=== PATIENT | male | born 1950 | race African-American/Black ===

== ENCOUNTER 2016-11-16 11:07 | Emergency (ER) | payer MEDICARE, MEDICAID ==
[2016-11-16] MEDS ORDERED: diphenhydrAMINE HCl 50 MG/ML 1 ML VIAL ONE (11:39)
[2016-11-16] MEDS ORDERED: Metoclopramide HCl 10 MG/2 ML VIAL ONE (11:39)
--- NOTE | 2016-11-16 12:20 | RAD ---
LEFT RIBS WITH PA CHEST: Four views obtained. HISTORY: Rib pain. No evidence of left rib fracture or other left rib lesion. There is left shoulder prosthesis. Prior resection of the distal left clavicle. The lungs appear clear on the upright PA chest. IMPRESSION: No acute finding. POS: [facility]
== END 2016-11-16 12:15 | disposition home or self-care (01) ==
LOC: NAV ERS 11:07
DX: R07.82 Intercostal pain (principal); R51 Headache; I10 Essential (primary) hypertension; E11.9 Type 2 diabetes mellitus without complications; F17.210 Nicotine dependence, cigarettes, uncomplicated; Z86.73 Personal history of transient ischemic attack (TIA), and cerebral infarction without residual deficits; Z79.2 Long term (current) use of antibiotics; Z79.891 Long term (current) use of opiate analgesic; Z79.899 Other long term (current) drug therapy
CPT/HCPCS: 96372; J1200; J2765

== ENCOUNTER 2016-11-27 07:47 | Emergency (ER) | payer MEDICARE, MEDICAID ==
[2016-11-27 08:39] LABS: #Basophils 0.1 thou/uL (0.0-0.2); #Eosinphils 0.2 thou/uL (0.0-0.7); #Monocytes 0.4 thou/uL (0.11-0.59); #Neutrophils 3.1 thou/uL (1.40-6.50); %Basophils 1.9 % (0.0-1.0); %Eosinophils 2.6 % (0.0-10.0); %Lymphocytes 43.9 % (21.0-51.0); %Monocytes 6.4 % (0.0-10.0); %Neutrophils 45.2 % (42.0-75.0); Hemoglobin 12.7 g/dL (14.0-18.0); Mean Corpuscular HGB CONC 31.1 g/dL (32.0-36.0); Mean Corpuscular Hemoglobin 25.3 pg (27.0-31.0); Mean Corpuscular Volume 81.5 fl (80.0-94.0); Platelet Count 276 thou/uL (130-400); RBC Distribution Width 12.9 % (11.5-14.5); Red Blood Cell (RBC) Count 5.01 mill/uL (4.70-6.10); White Blood Cell (WBC) Count 6.8 thou/uL (4.8-10.8)
[2016-11-27 08:54] LABS: ALT (SGPT) 14 U/L (8-55); AST (SGOT) 15 U/L (5-34); Alkaline Phosphatase 90 U/L (40-150); Anion Gap 16 mmol/L (10-20); BUN (Urea Nitrogen) 45 mg/dL (8.4-25.7); Bilirubin, Total 0.3 mg/dL (0.2-1.2); Calc. Creatinine Clearance 0 mL/min (70-130); Calcium 10.3 mg/dL (7.8-10.44); Carbon Dioxide 20 mmol/L (23-31); Chloride 104 mmol/L (98-107); Estimated GFR-MDRD 29; Globulin 3.4 g/dL (2.4-3.5); Glucose 145 mg/dL (80-115); Potassium 3.3 mmol/L (3.5-5.1); Protein, Total 7.4 g/dL (5.8-8.1); Sodium 137 mmol/L (136-145)
[2016-11-27] MEDS ORDERED: Azithromycin 250 MG TAB ONE (09:17)
[2016-11-27] MEDS ORDERED: Ketorolac Tromethamine 30 MG/ML VIAL ONE (09:18)
--- NOTE | 2016-11-27 09:34 | RAD ---
LEFT RIBS 2 VIEWS WITH PA CHEST XRAY: HISTORY: Left-sided chest pain. Cough. COMPARISON: Chest radiograph with ribs 11/16/16. FINDINGS: Lungs appear clear. No pneumothorax or effusion. Cardiac silhouette and mediastinal contours are s imilar. Left reversal total shoulder arthroplasty is similar with cerclage wires. Distal left clavicular osteolysis. No displaced left-sided rib fracture. IMPRESSION: Clear lungs and no displaced left-sided rib fracture. POS: [facility]
== END 2016-11-27 09:28 | disposition home or self-care (01) ==
LOC: NAV ERS 07:47
DX: S29.011A Strain of muscle and tendon of front wall of thorax, initial encounter (principal); J20.9 Acute bronchitis, unspecified; E11.9 Type 2 diabetes mellitus without complications; I10 Essential (primary) hypertension; F17.210 Nicotine dependence, cigarettes, uncomplicated; Z79.899 Other long term (current) drug therapy; X58.XXXA Exposure to other specified factors, initial encounter
CPT/HCPCS: 36415; 80053; 85025; 96372; J1885

== ENCOUNTER 2019-07-26 11:45 | Emergency (ER) | payer MEDICARE, OTHER ==
[2019-07-26] MEDS ORDERED: Ondansetron PF 4 MG/2 ML Vial ONE (12:46)
[2019-07-26] MEDS ORDERED: Sodium Chloride 0.9% 1,000 ML ONE (12:46)
[2019-07-26] MEDS ORDERED: Ketorolac Tromethamine 30 MG/ML VIAL ONE (12:46)
[2019-07-26 12:47] LABS: #Basophils 0.1 thou/uL (0.0-0.2); #Lymphocytes 0.4 thou/uL (1.20-3.40); #Monocytes 0.5 thou/uL (0.11-0.59); #Neutrophils 4.8 thou/uL (1.40-6.50); %Eosinophils 0.5 % (0.0-10.0); %Monocytes 9.1 % (0.0-10.0); %Neutrophils 83.5 % (42.0-75.0); Hemoglobin 13.7 g/dL (14.0-18.0); Mean Corpuscular HGB CONC 30.8 g/dL (32.0-36.0); Mean Corpuscular Hemoglobin 25.9 pg (27.0-31.0); Platelet Count 250 thou/uL (130-400); RBC Distribution Width 14.8 % (11.5-14.5); White Blood Cell (WBC) Count 5.7 thou/uL (4.8-10.8)
[2019-07-26 13:22] LABS: ALT (SGPT) 28 U/L (8-55); AST (SGOT) 21 U/L (5-34); Albumin 4.2 g/dL (3.4-4.8); Alkaline Phosphatase 85 U/L (40-110); Anion Gap 15 mmol/L (10-20); BUN (Urea Nitrogen) 36 mg/dL (8.4-25.7); Bilirubin, Total 0.4 mg/dL (0.2-1.2); Calc. Creatinine Clearance 0 mL/min (70-130); Calcium 9.6 mg/dL (7.8-10.44); Carbon Dioxide 22 mmol/L (23-31); Chloride 106 mmol/L (98-107); Estimated GFR-MDRD 51; Globulin 3.2 g/dL (2.4-3.5); Glucose 97 mg/dL (80-115); Lipase 14 U/L (8-78); Protein, Total 7.4 g/dL (5.8-8.1); Sodium 139 mmol/L (136-145)
== END 2019-07-26 13:47 | disposition home or self-care (01) ==
LOC: NAV ERS 11:45
DX: E86.9 Volume depletion, unspecified (principal); I12.9 Hypertensive chronic kidney disease with stage 1 through stage 4 chronic kidney disease, or unspecified chronic kidney disease; N18.9 Chronic kidney disease, unspecified; E11.9 Type 2 diabetes mellitus without complications; F17.210 Nicotine dependence, cigarettes, uncomplicated; Z86.73 Personal history of transient ischemic attack (TIA), and cerebral infarction without residual deficits; Z79.82 Long term (current) use of aspirin; Z79.899 Other long term (current) drug therapy
CPT/HCPCS: 80053; 83690; 85025; 87804; 96361; 96374; 96375; J1885; J2405; J7050

== ENCOUNTER 2022-03-15 19:03 | Emergency (ER) | payer OTHER ==
[2022-03-15] MEDS ORDERED: Ibuprofen 200 MG TAB ONE (19:42)
== END 2022-03-15 19:50 | disposition home or self-care (01) ==
LOC: NAV ERS 19:03
DX: I10 Essential (primary) hypertension (principal); E11.9 Type 2 diabetes mellitus without complications; F17.210 Nicotine dependence, cigarettes, uncomplicated; Z79.899 Other long term (current) drug therapy
CPT/HCPCS: 99283

== ENCOUNTER 2022-10-27 14:46 | Outpatient (CLI) | payer OTHER | END 2022-10-27 14:47 | disposition home or self-care (01) | LOC: NAV RAD 14:46 | PROVIDERS: ATTEND Family Medicine | DX: M25.512 Pain in left shoulder (principal) ==

== ENCOUNTER 2022-11-18 09:25 | Inpatient (IN) | payer OTHER ==
[2022-11-18] MEDS ORDERED: Glucagon 1 MG/ML KIT IM PRN (09:49)
[2022-11-18] MEDS ORDERED: Dextrose 50% Abboject 50 ML SYRINGE SLOW IVP PRN (09:49)
[2022-11-18] MEDS ORDERED: Sodium Chloride 0.65% Nasal 44 ML BOT EA NARE PRN (09:50)
[2022-11-18] MEDS ORDERED: Calcium Carbonate 500 MG ChewTAB PO PRN (09:50)
[2022-11-18] MEDS ORDERED: HumaLOG 300 UNITS/3 ML VIAL SC PRN (09:50)
[2022-11-18] MEDS ORDERED: Artificial Tear Sol 15 ML BOT EA EYE PRN (09:50)
[2022-11-18] MEDS ORDERED: Senokot S 8.6-50 MG TAB PO PRN (09:50)
[2022-11-18] MEDS ORDERED: Bisacodyl 10 MG SUPP PR PRN (09:50)
[2022-11-18] MEDS ORDERED: Acetaminophen 650 MG Suppository PR PRN (09:50)
[2022-11-18] MEDS ORDERED: Bisacodyl 5 MG TAB PO PRN (09:50)
[2022-11-18] MEDS ORDERED: Benzocaine/Menthol 1 LOZ LOZ PO PRN (09:50)
[2022-11-18] MEDS ORDERED: Ventolin HFA Inhaler 60 PUFF INHALER INH PRN (14:44)
[2022-11-18] MEDS ORDERED: Mometasone 100 MCG/Formoterol 5 MCG 120 PUFF INHALER INH SCH ×2 (15:15→21:00)
[2022-11-18] MEDS ORDERED: Mometasone/Formoterol 60 PUFF AER INH SCH (15:45)
[2022-11-18] MEDS: HYDROcodone/Acetaminophen 5/325 mg Tablet PO PRN ×2 (15:52→20:29)
[2022-11-18] MEDS: Nicotine 21 MG PATCH TD SCH (15:53)
[2022-11-18] MEDS: Carvedilol 3.125 MG TAB PO SCH (16:02)
[2022-11-18] MEDS: Baclofen 10 MG TAB PO SCH (20:27)
[2022-11-18] MEDS: Rosuvastatin 10 MG TAB PO SCH (20:27)
[2022-11-18] MEDS: Mometasone/Formoterol 60 PUFF AER INH SCH (20:28)
[2022-11-18] MEDS: Guaifenesin DM 100-10/5 ML UDCUP PO PRN (20:29)
[2022-11-19 06:07] LABS: #Basophils 0.1 thou/uL (0.0-0.2); #Eosinphils 0.1 thou/uL (0.0-0.7); #Lymphocytes 1.7 thou/uL (1.20-3.40); #Monocytes 0.4 thou/uL (0.11-0.59); #Neutrophils 2.5 thou/uL (1.40-6.50); %Basophils 1.3 % (0.0-1.0); %Lymphocytes 35.3 % (21.0-51.0); %Monocytes 7.5 % (0.0-10.0); %Neutrophils 53.9 % (42.0-75.0); Hemoglobin 9.7 g/dL (14.0-18.0); Mean Corpuscular HGB CONC 30.8 g/dL (32.0-36.0); Mean Corpuscular Hemoglobin 26.7 pg (27.0-31.0); Mean Corpuscular Volume 86.8 fl (78.0-98.0); Platelet Count 263 10x3/uL (130-400); RBC Distribution Width 13.1 % (11.5-14.5); Red Blood Cell (RBC) Count 3.62 mill/uL (4.70-6.10); White Blood Cell (WBC) Count 7.7 10x3/uL (4.8-10.8)
[2022-11-19 06:10] LABS: ALT (SGPT) 85 U/L (8-55); AST (SGOT) 31 U/L (5-34); Alkaline Phosphatase 130 U/L (40-110); Anion Gap 14 mmol/L (10-20); BUN (Urea Nitrogen) 24 mg/dL (8.4-25.7); Bilirubin, Total 0.4 mg/dL (0.2-1.2); Calc. Creatinine Clearance 53 mL/min (70-130); Carbon Dioxide 24 mmol/L (23-31); Chloride 106 mmol/L (98-107); Estimated GFR 65; Glucose 104 mg/dL (83-110); Potassium 4.5 mmol/L (3.5-5.1); Sodium 139 mmol/L (136-145)
[2022-11-19] MEDS: HYDROcodone/Acetaminophen 5/325 mg Tablet PO PRN ×2 (08:04→21:14)
[2022-11-19] MEDS: Mometasone/Formoterol 60 PUFF AER INH SCH ×2 (08:07→21:14)
[2022-11-19] MEDS: Tamsulosin HCl 0.4 MG CAP PO SCH (08:08)
[2022-11-19] MEDS: Aspirin 81 mg Enteric Coated Tablet PO SCH (08:08)
[2022-11-19] MEDS: Baclofen 10 MG TAB PO SCH ×2 (08:08→21:14)
[2022-11-19] MEDS: Carvedilol 3.125 MG TAB PO SCH ×2 (08:09→17:20)
[2022-11-19] MEDS: Benzonatate 100 MG CAP PO PRN (08:09)
[2022-11-19] MEDS ORDERED: PATIENT'S HOME MEDICATION PO SCH (09:00)
[2022-11-19] MEDS: Nicotine 21 MG PATCH TD SCH (13:45)
[2022-11-19] MEDS: Acetaminophen 325 MG TAB PO PRN (13:50)
[2022-11-19] MEDS: Rosuvastatin 10 MG TAB PO SCH (21:14)
[2022-11-20] MEDS: HYDROcodone/Acetaminophen 5/325 mg Tablet PO PRN (07:58)
[2022-11-20] MEDS: Mometasone/Formoterol 60 PUFF AER INH SCH ×2 (08:00→21:45)
[2022-11-20] MEDS: Aspirin 81 mg Enteric Coated Tablet PO SCH (08:00)
[2022-11-20] MEDS: Tamsulosin HCl 0.4 MG CAP PO SCH (08:00)
[2022-11-20] MEDS: Carvedilol 3.125 MG TAB PO SCH ×2 (08:00→17:26)
[2022-11-20] MEDS: Baclofen 10 MG TAB PO SCH ×2 (08:00→21:45)
[2022-11-20] MEDS: Nicotine 21 MG PATCH TD SCH (14:27)
[2022-11-20] MEDS ORDERED: Albuterol 200 PUFF (6.7GM INHALER) INH PRN (16:30)
[2022-11-20] MEDS: Rosuvastatin 10 MG TAB PO SCH (21:45)
[2022-11-21] MEDS: Baclofen 10 MG TAB PO SCH ×2 (08:14→20:48)
[2022-11-21] MEDS: ALCAFTADINE L EYE SCH (08:15)
[2022-11-21] MEDS: Mometasone/Formoterol 60 PUFF AER INH SCH ×2 (08:15→20:51)
[2022-11-21] MEDS: Tamsulosin HCl 0.4 MG CAP PO SCH (08:15)
[2022-11-21] MEDS: Carvedilol 3.125 MG TAB PO SCH ×2 (08:15→16:29)
[2022-11-21] MEDS: Aspirin 81 mg Enteric Coated Tablet PO SCH (08:15)
[2022-11-21] MEDS: HYDROcodone/Acetaminophen 5/325 mg Tablet PO PRN ×2 (08:20→20:57)
[2022-11-21] MEDS ORDERED: [UNRECOGNIZED DRUG - OTHER] L EYE SCH (09:00)
[2022-11-21] MEDS: Nicotine 21 MG PATCH TD SCH (14:33)
[2022-11-21] MEDS: Rosuvastatin 10 MG TAB PO SCH (20:47)
[2022-11-22] MEDS: Tamsulosin HCl 0.4 MG CAP PO SCH (08:08)
[2022-11-22] MEDS: Carvedilol 3.125 MG TAB PO SCH ×2 (08:08→16:40)
[2022-11-22] MEDS: Baclofen 10 MG TAB PO SCH ×2 (08:08→20:03)
[2022-11-22] MEDS: ALCAFTADINE L EYE SCH (08:08)
[2022-11-22] MEDS: Aspirin 81 mg Enteric Coated Tablet PO SCH (08:08)
[2022-11-22] MEDS: Mometasone/Formoterol 60 PUFF AER INH SCH ×2 (08:08→20:00)
[2022-11-22] MEDS: Nicotine 21 MG PATCH TD SCH (08:48)
[2022-11-22] MEDS: Rosuvastatin 10 MG TAB PO SCH (20:03)
[2022-11-22] MEDS: Guaifenesin DM 100-10/5 ML UDCUP PO PRN (20:05)
[2022-11-23 06:10] LABS: #Basophils 0.1 thou/uL (0.0-0.2); #Eosinphils 0.2 thou/uL (0.0-0.7); #Lymphocytes 1.7 thou/uL (1.20-3.40); #Monocytes 0.4 thou/uL (0.11-0.59); %Basophils 1.1 % (0.0-1.0); %Eosinophils 1.9 % (0.0-10.0); %Lymphocytes 20.4 % (21.0-51.0); %Monocytes 5.2 % (0.0-10.0); %Neutrophils 71.5 % (42.0-75.0); Hemoglobin 9.5 g/dL (14.0-18.0); Mean Corpuscular HGB CONC 30.9 g/dL (32.0-36.0); Mean Corpuscular Hemoglobin 26.9 pg (27.0-31.0); Mean Corpuscular Volume 87.1 fl (78.0-98.0); Mean Platelet Volume 5.5 fL (7.4-10.4); Platelet Count 314 10x3/uL (130-400); RBC Distribution Width 13.7 % (11.5-14.5); Red Blood Cell (RBC) Count 3.54 mill/uL (4.70-6.10); White Blood Cell (WBC) Count 8.4 10x3/uL (4.8-10.8)
[2022-11-23 06:23] LABS: Anion Gap 10 mmol/L (10-20); BUN (Urea Nitrogen) 26 mg/dL (8.4-25.7); Calc. Creatinine Clearance 60 mL/min (70-130); Calcium 9.2 mg/dL (7.8-10.44); Carbon Dioxide 24 mmol/L (23-31); Chloride 109 mmol/L (98-107); Estimated GFR 75; Glucose 104 mg/dL (83-110); Potassium 4.1 mmol/L (3.5-5.1); Sodium 139 mmol/L (136-145)
[2022-11-23] MEDS: HYDROcodone/Acetaminophen 5/325 mg Tablet PO PRN ×2 (08:05→14:44)
[2022-11-23] MEDS: Mometasone/Formoterol 60 PUFF AER INH SCH ×2 (08:05→21:09)
[2022-11-23] MEDS: Tamsulosin HCl 0.4 MG CAP PO SCH (08:05)
[2022-11-23] MEDS: Benzonatate 100 MG CAP PO PRN (08:06)
[2022-11-23] MEDS: Baclofen 10 MG TAB PO SCH ×2 (08:06→21:08)
[2022-11-23] MEDS: Nicotine 21 MG PATCH TD SCH (08:07)
[2022-11-23] MEDS: ALCAFTADINE L EYE SCH (08:07)
[2022-11-23] MEDS: Aspirin 81 mg Enteric Coated Tablet PO SCH (08:07)
[2022-11-23] MEDS: Carvedilol 3.125 MG TAB PO SCH ×2 (08:07→17:48)
[2022-11-23] MEDS: Acetaminophen 325 MG TAB PO PRN (21:05)
[2022-11-23] MEDS: Rosuvastatin 10 MG TAB PO SCH (21:07)
[2022-11-24] MEDS: Baclofen 10 MG TAB PO SCH ×2 (07:46→21:03)
[2022-11-24] MEDS: Carvedilol 3.125 MG TAB PO SCH ×2 (07:46→17:35)
[2022-11-24] MEDS: Mometasone/Formoterol 60 PUFF AER INH SCH ×2 (07:47→21:02)
[2022-11-24] MEDS: Nicotine 21 MG PATCH TD SCH (07:47)
[2022-11-24] MEDS: Aspirin 81 mg Enteric Coated Tablet PO SCH (07:47)
[2022-11-24] MEDS: Tamsulosin HCl 0.4 MG CAP PO SCH (07:47)
[2022-11-24] MEDS: HYDROcodone/Acetaminophen 5/325 mg Tablet PO PRN (08:00)
[2022-11-24] MEDS: ALCAFTADINE L EYE SCH (08:40)
[2022-11-24] MEDS: Rosuvastatin 10 MG TAB PO SCH (21:04)
[2022-11-24] MEDS: Acetaminophen 325 MG TAB PO PRN (21:04)
[2022-11-24] MEDS: Benzonatate 100 MG CAP PO PRN (21:04)
[2022-11-25] MEDS: Baclofen 10 MG TAB PO SCH ×2 (08:31→21:08)
[2022-11-25] MEDS: Tamsulosin HCl 0.4 MG CAP PO SCH (08:31)
[2022-11-25] MEDS: Nicotine 21 MG PATCH TD SCH (08:31)
[2022-11-25] MEDS: Aspirin 81 mg Enteric Coated Tablet PO SCH (08:31)
[2022-11-25] MEDS: Carvedilol 3.125 MG TAB PO SCH ×2 (08:31→17:41)
[2022-11-25] MEDS: HYDROcodone/Acetaminophen 5/325 mg Tablet PO PRN ×2 (08:35→17:41)
[2022-11-25] MEDS: Mometasone/Formoterol 60 PUFF AER INH SCH ×2 (08:36→21:07)
[2022-11-25] MEDS: ALCAFTADINE L EYE SCH (09:00)
[2022-11-25] MEDS: Rosuvastatin 10 MG TAB PO SCH (21:07)
[2022-11-25] MEDS: Acetaminophen 325 MG TAB PO PRN (21:07)
[2022-11-26 06:04] LABS: #Basophils 0.1 thou/uL (0.0-0.2); #Eosinphils 0.1 thou/uL (0.0-0.7); #Lymphocytes 1.4 thou/uL (1.20-3.40); #Monocytes 0.4 thou/uL (0.11-0.59); #Neutrophils 3.1 thou/uL (1.40-6.50); %Basophils 1.6 % (0.0-1.0); %Eosinophils 2.1 % (0.0-10.0); %Lymphocytes 26.5 % (21.0-51.0); %Monocytes 8.4 % (0.0-10.0); %Neutrophils 61.5 % (42.0-75.0); Hemoglobin 9.6 g/dL (14.0-18.0); Mean Corpuscular HGB CONC 30.6 g/dL (32.0-36.0); Mean Corpuscular Hemoglobin 26.9 pg (27.0-31.0); Mean Corpuscular Volume 87.7 fl (78.0-98.0); Mean Platelet Volume 5.9 fL (7.4-10.4); Platelet Count 313 10x3/uL (130-400); Red Blood Cell (RBC) Count 3.57 mill/uL (4.70-6.10); White Blood Cell (WBC) Count 5.1 10x3/uL (4.8-10.8)
[2022-11-26 06:28] LABS: Anion Gap 14 mmol/L (10-20); BUN (Urea Nitrogen) 25 mg/dL (8.4-25.7); Calc. Creatinine Clearance 56 mL/min (70-130); Calcium 9.3 mg/dL (7.8-10.44); Carbon Dioxide 22 mmol/L (23-31); Chloride 109 mmol/L (98-107); Estimated GFR 68; Glucose 96 mg/dL (83-110); Potassium 4.4 mmol/L (3.5-5.1); Sodium 141 mmol/L (136-145)
[2022-11-26] MEDS: HYDROcodone/Acetaminophen 5/325 mg Tablet PO PRN ×2 (07:23→23:23)
[2022-11-26] MEDS: Tamsulosin HCl 0.4 MG CAP PO SCH (07:24)
[2022-11-26] MEDS: Baclofen 10 MG TAB PO SCH ×2 (07:24→20:29)
[2022-11-26] MEDS: Carvedilol 3.125 MG TAB PO SCH ×2 (07:25→16:33)
[2022-11-26] MEDS: Aspirin 81 mg Enteric Coated Tablet PO SCH (07:25)
[2022-11-26] MEDS: ALCAFTADINE L EYE SCH (07:25)
[2022-11-26] MEDS: Mometasone/Formoterol 60 PUFF AER INH SCH ×2 (07:28→20:29)
[2022-11-26] MEDS: Nicotine 21 MG PATCH TD SCH (07:28)
[2022-11-26] MEDS ORDERED: Sodium Chloride 0.9% 500 ML IV SCH (16:00)
[2022-11-26 16:10] LABS: CKMB 2.5 ng/mL (0-6.6)
[2022-11-26 16:58] LABS: Bilirubin Negative (Negative); Blood, Urine Negative (Negative); Clarity Clear (Clear); Glucose, Urine (Dipstick) Negative (Negative); Ketone, Urine Negative (Negative); Leukocyte Negative (Negative); Nitrite Negative (Negative); Protein, Urine (Dipstick) Negative (Neg-Trace)
[2022-11-26 17:02] LABS: CAUTI Indications for Culture Alt mental st,lethar
[2022-11-26 17:03] LABS: Bacteria/HPF None Seen HPF (None Seen); RBC/HPF None Seen HPF (0-3); Squamous Epithelial None Seen HPF (0-3); WBC/HPF None Seen HPF (0-3)
[2022-11-26 17:05] LABS: Urine Culture Reflex No No
[2022-11-26 20:28] VITALS: BMI 20.2
[2022-11-26] MEDS: Rosuvastatin 10 MG TAB PO SCH (20:29)
[2022-11-26 21:27] LABS: Troponin I 0.208 ng/mL (< 0.028)
[2022-11-27] MEDS: Tamsulosin HCl 0.4 MG CAP PO SCH (08:01)
[2022-11-27] MEDS: Baclofen 10 MG TAB PO SCH ×2 (08:01→20:03)
[2022-11-27] MEDS: Nicotine 21 MG PATCH TD SCH (08:02)
[2022-11-27] MEDS: Mometasone/Formoterol 60 PUFF AER INH SCH ×2 (08:02→20:39)
[2022-11-27] MEDS: Carvedilol 3.125 MG TAB PO SCH ×2 (08:02→17:10)
[2022-11-27] MEDS: Aspirin 81 mg Enteric Coated Tablet PO SCH (08:02)
[2022-11-27] MEDS: ALCAFTADINE L EYE SCH (08:03)
[2022-11-27] MEDS: HYDROcodone/Acetaminophen 5/325 mg Tablet PO PRN ×2 (08:10→20:03)
[2022-11-27] MEDS: Rosuvastatin 10 MG TAB PO SCH (20:03)
[2022-11-28] MEDS: Tamsulosin HCl 0.4 MG CAP PO SCH (08:39)
[2022-11-28] MEDS: Baclofen 10 MG TAB PO SCH ×2 (08:39→19:59)
[2022-11-28] MEDS: Aspirin 81 mg Enteric Coated Tablet PO SCH (08:39)
[2022-11-28] MEDS: Carvedilol 3.125 MG TAB PO SCH ×2 (08:39→17:06)
[2022-11-28] MEDS: Mometasone/Formoterol 60 PUFF AER INH SCH ×2 (08:40→20:00)
[2022-11-28] MEDS: ALCAFTADINE L EYE SCH (08:40)
[2022-11-28] MEDS: Nicotine 21 MG PATCH TD SCH (08:41)
[2022-11-28] MEDS: HYDROcodone/Acetaminophen 5/325 mg Tablet PO PRN ×2 (08:43→19:59)
[2022-11-28] MEDS: Rosuvastatin 10 MG TAB PO SCH (19:59)
[2022-11-29] MEDS: HYDROcodone/Acetaminophen 5/325 mg Tablet PO PRN ×3 (07:59→21:19)
[2022-11-29] MEDS: Nicotine 21 MG PATCH TD SCH (08:00)
[2022-11-29] MEDS: Guaifenesin DM 100-10/5 ML UDCUP PO PRN (08:01)
[2022-11-29] MEDS: Aspirin 81 mg Enteric Coated Tablet PO SCH (08:03)
[2022-11-29] MEDS: Carvedilol 3.125 MG TAB PO SCH ×2 (08:03→16:52)
[2022-11-29] MEDS: Mometasone/Formoterol 60 PUFF AER INH SCH ×2 (08:03→21:18)
[2022-11-29] MEDS: Baclofen 10 MG TAB PO SCH ×2 (08:03→21:19)
[2022-11-29] MEDS: Tamsulosin HCl 0.4 MG CAP PO SCH (08:03)
[2022-11-29] MEDS: ALCAFTADINE L EYE SCH (08:04)
[2022-11-29] MEDS: Rosuvastatin 10 MG TAB PO SCH (21:18)
[2022-11-30 06:01] LABS: #Basophils 0.1 thou/uL (0.0-0.2); #Eosinphils 0.1 thou/uL (0.0-0.7); #Lymphocytes 1.3 thou/uL (1.20-3.40); #Monocytes 0.4 thou/uL (0.11-0.59); #Neutrophils 2.7 thou/uL (1.40-6.50); %Basophils 1.2 % (0.0-1.0); %Eosinophils 2.5 % (0.0-10.0); %Lymphocytes 27.8 % (21.0-51.0); %Monocytes 9.6 % (0.0-10.0); %Neutrophils 58.9 % (42.0-75.0); Hemoglobin 10.9 g/dL (14.0-18.0); Mean Corpuscular HGB CONC 31.1 g/dL (32.0-36.0); Platelet Count 249 10x3/uL (130-400); RBC Distribution Width 13.7 % (11.5-14.5); Red Blood Cell (RBC) Count 4.03 mill/uL (4.70-6.10); White Blood Cell (WBC) Count 4.5 10x3/uL (4.8-10.8)
[2022-11-30 06:13] LABS: Anion Gap 12 mmol/L (10-20); BUN (Urea Nitrogen) 27 mg/dL (8.4-25.7); Calc. Creatinine Clearance 55 mL/min (70-130); Calcium 9.5 mg/dL (7.8-10.44); Carbon Dioxide 26 mmol/L (23-31); Chloride 105 mmol/L (98-107); Estimated GFR 68; Glucose 91 mg/dL (83-110); Potassium 4.2 mmol/L (3.5-5.1); Sodium 139 mmol/L (136-145)
[2022-11-30] MEDS: Nicotine 21 MG PATCH TD SCH (08:02)
[2022-11-30] MEDS: Tamsulosin HCl 0.4 MG CAP PO SCH (08:02)
[2022-11-30] MEDS: Baclofen 10 MG TAB PO SCH ×2 (08:02→23:02)
[2022-11-30] MEDS: Carvedilol 3.125 MG TAB PO SCH ×2 (08:02→17:00)
[2022-11-30] MEDS: Aspirin 81 mg Enteric Coated Tablet PO SCH (08:02)
[2022-11-30] MEDS: ALCAFTADINE L EYE SCH (08:02)
[2022-11-30] MEDS: Mometasone/Formoterol 60 PUFF AER INH SCH ×2 (08:02→23:03)
[2022-11-30] MEDS: HYDROcodone/Acetaminophen 5/325 mg Tablet PO PRN ×2 (08:08→23:00)
[2022-11-30] MEDS: Rosuvastatin 10 MG TAB PO SCH (23:02)
[2022-12-01] MEDS: Carvedilol 3.125 MG TAB PO SCH ×2 (08:59→16:30)
[2022-12-01] MEDS: Baclofen 10 MG TAB PO SCH ×2 (08:59→21:09)
[2022-12-01] MEDS: Tamsulosin HCl 0.4 MG CAP PO SCH (08:59)
[2022-12-01] MEDS: Aspirin 81 mg Enteric Coated Tablet PO SCH (09:00)
[2022-12-01] MEDS: ALCAFTADINE L EYE SCH (09:00)
[2022-12-01] MEDS: Mometasone/Formoterol 60 PUFF AER INH SCH ×2 (09:00→21:10)
[2022-12-01] MEDS: Nicotine 21 MG PATCH TD SCH (09:00)
[2022-12-01] MEDS: HYDROcodone/Acetaminophen 5/325 mg Tablet PO PRN (09:07)
[2022-12-01] MEDS: Rosuvastatin 10 MG TAB PO SCH (21:09)
[2022-12-02] MEDS: Tamsulosin HCl 0.4 MG CAP PO SCH (08:29)
[2022-12-02] MEDS: Mometasone/Formoterol 60 PUFF AER INH SCH ×2 (08:29→20:58)
[2022-12-02] MEDS: HYDROcodone/Acetaminophen 5/325 mg Tablet PO PRN ×2 (08:29→20:55)
[2022-12-02] MEDS: Nicotine 21 MG PATCH TD SCH (08:29)
[2022-12-02] MEDS: Baclofen 10 MG TAB PO SCH ×2 (08:30→20:58)
[2022-12-02] MEDS: Carvedilol 3.125 MG TAB PO SCH ×2 (08:31→18:13)
[2022-12-02] MEDS: Aspirin 81 mg Enteric Coated Tablet PO SCH (08:31)
[2022-12-02] MEDS: ALCAFTADINE L EYE SCH (08:31)
[2022-12-02] MEDS: Rosuvastatin 10 MG TAB PO SCH (20:55)
[2022-12-03 06:07] LABS: #Basophils 0.1 thou/uL (0.0-0.2); #Eosinphils 0.2 thou/uL (0.0-0.7); #Lymphocytes 1.4 thou/uL (1.20-3.40); #Monocytes 0.9 thou/uL (0.11-0.59); #Neutrophils 5.8 thou/uL (1.40-6.50); %Basophils 1.4 % (0.0-1.0); %Monocytes 10.3 % (0.0-10.0); %Neutrophils 69.4 % (42.0-75.0); Hemoglobin 11.3 g/dL (14.0-18.0); Mean Corpuscular HGB CONC 30.2 g/dL (32.0-36.0); Mean Corpuscular Hemoglobin 26.7 pg (27.0-31.0); Mean Corpuscular Volume 88.4 fl (78.0-98.0); Platelet Count 253 10x3/uL (130-400); RBC Distribution Width 13.6 % (11.5-14.5); Red Blood Cell (RBC) Count 4.24 mill/uL (4.70-6.10); White Blood Cell (WBC) Count 8.3 10x3/uL (4.8-10.8)
[2022-12-03 06:22] LABS: Anion Gap 14 mmol/L (10-20); BUN (Urea Nitrogen) 26 mg/dL (8.4-25.7); Calc. Creatinine Clearance 48 mL/min (70-130); Calcium 9.8 mg/dL (7.8-10.44); Carbon Dioxide 24 mmol/L (23-31); Chloride 107 mmol/L (98-107); Estimated GFR 57; Glucose 95 mg/dL (83-110); Potassium 4.1 mmol/L (3.5-5.1); Sodium 141 mmol/L (136-145)
[2022-12-03] MEDS: Baclofen 10 MG TAB PO SCH ×2 (08:29→21:47)
[2022-12-03] MEDS: Aspirin 81 mg Enteric Coated Tablet PO SCH (08:30)
[2022-12-03] MEDS: Tamsulosin HCl 0.4 MG CAP PO SCH (08:30)
[2022-12-03] MEDS: Carvedilol 3.125 MG TAB PO SCH ×2 (08:30→17:29)
[2022-12-03] MEDS: Mometasone/Formoterol 60 PUFF AER INH SCH ×2 (08:32→21:46)
[2022-12-03] MEDS: ALCAFTADINE L EYE SCH (08:32)
[2022-12-03] MEDS: Nicotine 21 MG PATCH TD SCH (08:37)
[2022-12-03] MEDS: HYDROcodone/Acetaminophen 5/325 mg Tablet PO PRN (08:38)
[2022-12-03] MEDS: Rosuvastatin 10 MG TAB PO SCH (21:47)
[2022-12-03] MEDS: Acetaminophen 325 MG TAB PO PRN (21:48)
[2022-12-04] MEDS: Baclofen 10 MG TAB PO SCH ×2 (09:10→20:55)
[2022-12-04] MEDS: Tamsulosin HCl 0.4 MG CAP PO SCH (09:10)
[2022-12-04] MEDS: Carvedilol 3.125 MG TAB PO SCH ×2 (09:11→17:18)
[2022-12-04] MEDS: HYDROcodone/Acetaminophen 5/325 mg Tablet PO PRN ×3 (09:11→20:55)
[2022-12-04] MEDS: Nicotine 21 MG PATCH TD SCH (09:12)
[2022-12-04] MEDS: Aspirin 81 mg Enteric Coated Tablet PO SCH (09:12)
[2022-12-04] MEDS: Mometasone/Formoterol 60 PUFF AER INH SCH ×2 (09:13→20:54)
[2022-12-04] MEDS: ALCAFTADINE L EYE SCH (09:13)
[2022-12-04] MEDS: Rosuvastatin 10 MG TAB PO SCH (20:54)
[2022-12-05] MEDS: Tamsulosin HCl 0.4 MG CAP PO SCH (08:03)
[2022-12-05] MEDS: Mometasone/Formoterol 60 PUFF AER INH SCH ×2 (08:03→21:06)
[2022-12-05] MEDS: Aspirin 81 mg Enteric Coated Tablet PO SCH (08:03)
[2022-12-05] MEDS: ALCAFTADINE L EYE SCH (08:03)
[2022-12-05] MEDS: Baclofen 10 MG TAB PO SCH ×2 (08:03→21:08)
[2022-12-05] MEDS: Nicotine 21 MG PATCH TD SCH (08:03)
[2022-12-05] MEDS: Carvedilol 3.125 MG TAB PO SCH ×2 (08:03→16:37)
[2022-12-05] MEDS: Acetaminophen 325 MG TAB PO PRN (08:15)
[2022-12-05] MEDS: HYDROcodone/Acetaminophen 5/325 mg Tablet PO PRN (21:06)
[2022-12-05] MEDS: Rosuvastatin 10 MG TAB PO SCH (21:08)
[2022-12-06] MEDS: Nicotine 21 MG PATCH TD SCH (08:39)
[2022-12-06] MEDS: ALCAFTADINE L EYE SCH (08:39)
[2022-12-06] MEDS: Aspirin 81 mg Enteric Coated Tablet PO SCH (08:39)
[2022-12-06] MEDS: Mometasone/Formoterol 60 PUFF AER INH SCH ×2 (08:39→21:15)
[2022-12-06] MEDS: Baclofen 10 MG TAB PO SCH ×2 (08:39→21:17)
[2022-12-06] MEDS: Tamsulosin HCl 0.4 MG CAP PO SCH (08:39)
[2022-12-06] MEDS: Carvedilol 3.125 MG TAB PO SCH ×2 (08:39→16:31)
[2022-12-06] MEDS: Acetaminophen 325 MG TAB PO PRN (08:46)
[2022-12-06] MEDS: HYDROcodone/Acetaminophen 5/325 mg Tablet PO PRN (21:16)
[2022-12-06] MEDS: Rosuvastatin 10 MG TAB PO SCH (21:17)
[2022-12-07 05:52] LABS: #Basophils 0.1 thou/uL (0.0-0.2); #Eosinphils 0.2 thou/uL (0.0-0.7); #Lymphocytes 1.5 thou/uL (1.20-3.40); #Monocytes 0.7 thou/uL (0.11-0.59); #Neutrophils 2.7 thou/uL (1.40-6.50); %Basophils 1.6 % (0.0-1.0); %Eosinophils 3.6 % (0.0-10.0); %Lymphocytes 28.8 % (21.0-51.0); %Monocytes 14.1 % (0.0-10.0); %Neutrophils 51.8 % (42.0-75.0); Mean Corpuscular HGB CONC 31.5 g/dL (32.0-36.0); Mean Corpuscular Hemoglobin 26.8 pg (27.0-31.0); Mean Platelet Volume 6.8 fL (7.4-10.4); Platelet Count 280 10x3/uL (130-400); Red Blood Cell (RBC) Count 4.11 mill/uL (4.70-6.10); White Blood Cell (WBC) Count 5.2 10x3/uL (4.8-10.8)
[2022-12-07 06:09] LABS: Anion Gap 12 mmol/L (10-20); BUN (Urea Nitrogen) 25 mg/dL (8.4-25.7); Calc. Creatinine Clearance 54 mL/min (70-130); Calcium 9.5 mg/dL (7.8-10.44); Carbon Dioxide 25 mmol/L (23-31); Chloride 108 mmol/L (98-107); Estimated GFR 65; Glucose 116 mg/dL (83-110); Potassium 4.1 mmol/L (3.5-5.1); Sodium 141 mmol/L (136-145)
[2022-12-07] MEDS: Tamsulosin HCl 0.4 MG CAP PO SCH (09:22)
[2022-12-07] MEDS: Carvedilol 3.125 MG TAB PO SCH ×2 (09:22→17:17)
[2022-12-07] MEDS: Aspirin 81 mg Enteric Coated Tablet PO SCH (09:22)
[2022-12-07] MEDS: Baclofen 10 MG TAB PO SCH ×2 (09:22→21:42)
[2022-12-07] MEDS: Nicotine 21 MG PATCH TD SCH (09:23)
[2022-12-07] MEDS: Mometasone/Formoterol 60 PUFF AER INH SCH ×2 (09:23→21:42)
[2022-12-07] MEDS: ALCAFTADINE L EYE SCH (09:23)
[2022-12-07] MEDS: HYDROcodone/Acetaminophen 5/325 mg Tablet PO PRN ×2 (09:27→21:48)
[2022-12-07] MEDS: Guaifenesin DM 100-10/5 ML UDCUP PO PRN (09:28)
[2022-12-07 17:00] LABS: Bilirubin Negative (Negative); Blood, Urine Negative (Negative); Glucose, Urine (Dipstick) Negative (Negative); Ketone, Urine Negative (Negative); Leukocyte Large (Negative); Nitrite Positive (Negative); Protein, Urine (Dipstick) > or equal to 300 mg/dL (Neg-Trace); Urobilinogen 0.2 mg/dL (Less than 2)
[2022-12-07 17:17] LABS: Clarity Turbid (Clear)
[2022-12-07 17:20] LABS: Bacteria/HPF 4+ HPF (None Seen); RBC/HPF 0-3 HPF (0-3); Squamous Epithelial 0-3 HPF (0-3)
[2022-12-07] MEDS: Rosuvastatin 10 MG TAB PO SCH (21:42)
[2022-12-07] MEDS: Nitrofurantoin Monohyd/M-Cryst 100 MG CAP PO SCH (21:42)
[2022-12-08] MEDS: Aspirin 81 mg Enteric Coated Tablet PO SCH (09:17)
[2022-12-08] MEDS: Nicotine 21 MG PATCH TD SCH (09:17)
[2022-12-08] MEDS: Carvedilol 3.125 MG TAB PO SCH ×2 (09:17→16:27)
[2022-12-08] MEDS: Tamsulosin HCl 0.4 MG CAP PO SCH (09:17)
[2022-12-08] MEDS: Baclofen 10 MG TAB PO SCH ×2 (09:17→22:02)
[2022-12-08] MEDS: ALCAFTADINE L EYE SCH (09:18)
[2022-12-08] MEDS: Mometasone/Formoterol 60 PUFF AER INH SCH ×2 (09:18→22:03)
[2022-12-08] MEDS: Nitrofurantoin Monohyd/M-Cryst 100 MG CAP PO SCH ×2 (09:18→22:00)
[2022-12-08] MEDS: Acetaminophen 325 MG TAB PO PRN (09:22)
[2022-12-08] MEDS: Rosuvastatin 10 MG TAB PO SCH (21:59)
[2022-12-08] MEDS: HYDROcodone/Acetaminophen 5/325 mg Tablet PO PRN (22:01)
[2022-12-09] MEDS: Tamsulosin HCl 0.4 MG CAP PO SCH (07:52)
[2022-12-09] MEDS: Baclofen 10 MG TAB PO SCH ×2 (07:52→20:24)
[2022-12-09] MEDS: Nitrofurantoin Monohyd/M-Cryst 100 MG CAP PO SCH (07:52)
[2022-12-09] MEDS: Aspirin 81 mg Enteric Coated Tablet PO SCH (07:52)
[2022-12-09] MEDS: Nicotine 21 MG PATCH TD SCH (07:53)
[2022-12-09] MEDS: ALCAFTADINE L EYE SCH (07:53)
[2022-12-09] MEDS: Mometasone/Formoterol 60 PUFF AER INH SCH ×2 (07:53→20:25)
[2022-12-09] MEDS: HYDROcodone/Acetaminophen 5/325 mg Tablet PO PRN (20:22)
[2022-12-09] MEDS: Cipro 250 MG TAB PO SCH (20:24)
[2022-12-09] MEDS: Rosuvastatin 10 MG TAB PO SCH (20:24)
[2022-12-10] MEDS: Cipro 250 MG TAB PO SCH ×2 (05:39→20:17)
[2022-12-10] MEDS: Nicotine 21 MG PATCH TD SCH (08:22)
[2022-12-10] MEDS: Tamsulosin HCl 0.4 MG CAP PO SCH (08:22)
[2022-12-10] MEDS: ALCAFTADINE L EYE SCH (08:23)
[2022-12-10] MEDS: Mometasone/Formoterol 60 PUFF AER INH SCH ×2 (08:23→20:17)
[2022-12-10] MEDS: Baclofen 10 MG TAB PO SCH ×2 (08:23→20:17)
[2022-12-10] MEDS: Aspirin 81 mg Enteric Coated Tablet PO SCH (08:23)
[2022-12-10 08:55] LABS: #Basophils 0.1 thou/uL (0.0-0.2); #Eosinphils 0.1 thou/uL (0.0-0.7); #Lymphocytes 1.5 thou/uL (1.20-3.40); #Monocytes 0.4 thou/uL (0.11-0.59); #Neutrophils 3.8 thou/uL (1.40-6.50); %Basophils 1.4 % (0.0-1.0); %Eosinophils 2.2 % (0.0-10.0); %Monocytes 6.9 % (0.0-10.0); %Neutrophils 64.6 % (42.0-75.0); Hemoglobin 12.2 g/dL (14.0-18.0); Mean Corpuscular HGB CONC 30.6 g/dL (32.0-36.0); Mean Corpuscular Hemoglobin 26.4 pg (27.0-31.0); Mean Corpuscular Volume 86.2 fl (78.0-98.0); Mean Platelet Volume 6.1 fL (7.4-10.4); Platelet Count 280 10x3/uL (130-400); RBC Distribution Width 13.4 % (11.5-14.5); Red Blood Cell (RBC) Count 4.63 mill/uL (4.70-6.10)
[2022-12-10 09:01] LABS: Anion Gap 16 mmol/L (10-20); BUN (Urea Nitrogen) 28 mg/dL (8.4-25.7); Calc. Creatinine Clearance 50 mL/min (70-130); Calcium 10.1 mg/dL (7.8-10.44); Carbon Dioxide 23 mmol/L (23-31); Chloride 105 mmol/L (98-107); Estimated GFR 60; Glucose 140 mg/dL (83-110); Potassium 4.3 mmol/L (3.5-5.1); Sodium 140 mmol/L (136-145)
[2022-12-10] MEDS: Rosuvastatin 10 MG TAB PO SCH (20:17)
[2022-12-10] MEDS: HYDROcodone/Acetaminophen 5/325 mg Tablet PO PRN (20:18)
[2022-12-11] MEDS: Cipro 250 MG TAB PO SCH (06:04)
[2022-12-11] MEDS: Nicotine 21 MG PATCH TD SCH (07:36)
[2022-12-11] MEDS: HYDROcodone/Acetaminophen 5/325 mg Tablet PO PRN (07:37)
[2022-12-11] MEDS: Baclofen 10 MG TAB PO SCH (07:37)
[2022-12-11] MEDS: ALCAFTADINE L EYE SCH (07:38)
[2022-12-11] MEDS: Aspirin 81 mg Enteric Coated Tablet PO SCH (07:38)
[2022-12-11] MEDS: Tamsulosin HCl 0.4 MG CAP PO SCH (07:38)
[2022-12-11] MEDS: Mometasone/Formoterol 60 PUFF AER INH SCH (07:39)
[2022-12-11 09:46] VITALS: BP 125/85; TEMP 98.4
== END 2022-12-11 18:24 | disposition home or self-care (01) | DRG 948 ==
LOC: NAV ACUTE 13:02
PROVIDERS: ADMIT Family Medicine; ATTEND Family Medicine
DX: R53.81 Other malaise (principal); N30.00 Acute cystitis without hematuria; R53.1 Weakness; I25.10 Atherosclerotic heart disease of native coronary artery without angina pectoris; I10 Essential (primary) hypertension; E11.9 Type 2 diabetes mellitus without complications; K21.9 Gastro-esophageal reflux disease without esophagitis; G89.29 Other chronic pain; B18.2 Chronic viral hepatitis C; J44.9 Chronic obstructive pulmonary disease, unspecified; F17.210 Nicotine dependence, cigarettes, uncomplicated; E78.5 Hyperlipidemia, unspecified; Z79.82 Long term (current) use of aspirin; Z95.1 Presence of aortocoronary bypass graft; Z79.899 Other long term (current) drug therapy; Z71.6 Tobacco abuse counseling
CPT/HCPCS: 36415; 36416; 70450; 71045; 80048; 80053; 81001; 82553; 84484; 85025; 87077; 87086; 87186; 94664; J7030

== ENCOUNTER 2023-01-24 15:34 | Emergency (ER) | payer OTHER ==
[2023-01-24 16:00] LABS: #Basophils 0.1 thou/uL (0.0-0.2); #Eosinphils 0.1 thou/uL (0.0-0.7); #Lymphocytes 1.4 thou/uL (1.20-3.40); #Monocytes 0.3 thou/uL (0.11-0.59); #Neutrophils 1.6 thou/uL (1.40-6.50); %Monocytes 9.6 % (0.0-10.0); %Neutrophils 46.4 % (42.0-75.0); Hematocrit 38.5 % (42.0-52.0); Hemoglobin 11.6 g/dL (14.0-18.0); Mean Corpuscular HGB CONC 30.1 g/dL (32.0-36.0); Mean Corpuscular Hemoglobin 25.5 pg (27.0-31.0); Mean Corpuscular Volume 84.7 fl (78.0-98.0); Mean Platelet Volume 7.8 fL (7.4-10.4); Platelet Count 184 10x3/uL (130-400); RBC Distribution Width 13.7 % (11.5-14.5); Red Blood Cell (RBC) Count 4.55 mill/uL (4.70-6.10); White Blood Cell (WBC) Count 3.6 10x3/uL (4.8-10.8)
[2023-01-24] MEDS ORDERED: Nitroglycerin 0.4 MG TAB (25 Tab Bottle) ONE (16:15)
[2023-01-24] MEDS ORDERED: Pantoprazole 40 MG VIAL ONE (16:15)
[2023-01-24] MEDS ORDERED: Aspirin Chewable 81 MG TAB ONE (16:15)
[2023-01-24 16:18] LABS: ALT (SGPT) 16 U/L (8-55); AST (SGOT) 17 U/L (5-34); Albumin 3.8 g/dL (3.4-4.8); Alkaline Phosphatase 106 U/L (40-110); Anion Gap 14 mmol/L (10-20); BUN (Urea Nitrogen) 19 mg/dL (8.4-25.7); Bilirubin, Total 0.2 mg/dL (0.2-1.2); Calc. Creatinine Clearance 0 mL/min (70-130); Calcium 9.2 mg/dL (7.8-10.44); Carbon Dioxide 18 mmol/L (23-31); Chloride 112 mmol/L (98-107); Estimated GFR 48; Globulin 2.7 g/dL (2.4-3.5); Glucose 140 mg/dL (83-110); Potassium 3.8 mmol/L (3.5-5.1); Protein, Total 6.5 g/dL (5.8-8.1); Sodium 140 mmol/L (136-145)
[2023-01-24] MEDS ORDERED: Mag-Al Plus 1200 MG/1200 MG/120 MG/30 ML UDCUP ONE (16:30)
[2023-01-24] MEDS ORDERED: Ondansetron PF 4 MG/2 ML Vial ONE (16:30)
[2023-01-24] MEDS ORDERED: Lidocaine Viscous Sol 2% 15 ml UD Cup ONE (16:30)
[2023-01-24] MEDS ORDERED: Sucralfate 1 GM TAB ONE (17:58)
[2023-01-24 19:14] LABS: Troponin I 0.019 ng/mL (< 0.028)
== END 2023-01-24 19:40 | disposition home or self-care (01) ==
LOC: NAV ERS 15:34
DX: K29.70 Gastritis, unspecified, without bleeding (principal); E11.9 Type 2 diabetes mellitus without complications; I10 Essential (primary) hypertension; F17.210 Nicotine dependence, cigarettes, uncomplicated; Z79.899 Other long term (current) drug therapy; Z79.82 Long term (current) use of aspirin
CPT/HCPCS: 36415; 71045; 80053; 83690; 83880; 84484; 85025; 85379; 93005; 94760; 96374; 96375; C9113; J2405

== ENCOUNTER 2024-01-11 16:05 | Outpatient (CLI) | payer OTHER | END 2024-01-11 16:06 | disposition home or self-care (01) | LOC: NAV RAD 16:05 | PROVIDERS: ATTEND Family Medicine | DX: M75.02 Adhesive capsulitis of left shoulder (principal) ==

== ENCOUNTER 2024-06-11 20:00 | Emergency (ER) | payer OTHER ==
[~2024-06-11 20:00] MED LIST: Iopamidol 370 76% 100 ML VIAL ONE
[2024-06-11] MEDS ORDERED: Morphine 4 MG/ML VIAL ONE (20:13)
[2024-06-11] MEDS ORDERED: Ondansetron PF 4 MG/2 ML Vial ONE (20:13)
[2024-06-11 20:44] LABS: #Basophils 0.1 thou/uL (0.0-0.2); #Eosinophils 0.1 thou/uL (0.0-0.7); #Lymphocytes 1.7 thou/uL (1.20-3.40); #Monocytes 0.4 thou/uL (0.11-0.59); #Neutrophils 2.1 thou/uL (1.40-6.50); %Basophils 1.4 % (0.0-1.0); %Eosinophils 1.8 % (0.0-10.0); %Lymphocytes 39.7 % (21.0-51.0); %Neutrophils 48.1 % (42.0-75.0); Hematocrit 45.4 % (42.0-52.0); Hemoglobin 13.8 g/dL (14.0-18.0); Mean Corpuscular HGB CONC 30.4 g/dL (32.0-36.0); Mean Corpuscular Hemoglobin 26.5 pg (27.0-31.0); Mean Corpuscular Volume 87.2 fl (78.0-98.0); Mean Platelet Volume 7.9 fL (7.4-10.4); Platelet Count 163 10x3/uL (130-400); RBC Distribution Width 12.4 % (11.5-14.5); Red Blood Cell (RBC) Count 5.21 mill/uL (4.70-6.10); White Blood Cell (WBC) Count 4.4 10x3/uL (4.8-10.8)
[2024-06-11 20:56] LABS: Anion Gap 14 mmol/L (10-20); BUN (Urea Nitrogen) 25 mg/dL (8.4-25.7); Calc. Creatinine Clearance 0 mL/min (70-130); Calcium 10.2 mg/dL (7.8-10.44); Carbon Dioxide 23 mmol/L (23-31); Chloride 107 mmol/L (98-107); Estimated GFR 51; Glucose 139 mg/dL (83-110); Potassium 4.6 mmol/L (3.5-5.1); Sodium 139 mmol/L (136-145)
[2024-06-11] MEDS ORDERED: Sodium Chloride 0.9% 500 ML ONE (21:19)
[2024-06-11] MEDS ORDERED: HYDROcodone/Acetaminophen 10/325 mg Tablet ONE (22:34)
== END 2024-06-11 23:00 | disposition home or self-care (01) ==
LOC: NAV ERS 20:00
DX: S22.41XA Multiple fractures of ribs, right side, initial encounter for closed fracture (principal); R03.0 Elevated blood-pressure reading, without diagnosis of hypertension; E11.9 Type 2 diabetes mellitus without complications; I10 Essential (primary) hypertension; F17.210 Nicotine dependence, cigarettes, uncomplicated; W18.30XA Fall on same level, unspecified, initial encounter
CPT/HCPCS: 71260; 72125; 74177; 80048; 85025; 94799; J2272; J2405; J7030; Q9967; 96374; 96375